=== PATIENT | female | born 1960 | race Caucasian/White ===

== ENCOUNTER 2025-02-26 05:42 | Emergency (ER) | payer MEDICARE, OTHER ==
[~2025-02-26] VITALS: Ht 172.7 cm; Wt 90.9 kg
[2025-02-26 05:49] VITALS: BP 186/80; PULSE 77; RESP 16; TEMP 97.9; O2SAT 97
== END 2025-02-26 07:59 | disposition left against medical advice (07) ==
LOC: ER 05:42
DX: Z00.8 Encounter for other general examination (principal); Z88.5 Allergy status to narcotic agent; Z53.21 Procedure and treatment not carried out due to patient leaving prior to being seen by health care provider